=== PATIENT | male | born 1990 | race Two or more races ===

== ENCOUNTER 2021-04-14 23:45 | Emergency (ER) | payer OTHER ==
--- NOTE | 2021-04-15 00:31 | XRAY Report ---
PROCEDURE: Shoulder 3 View RT INDICATIONS: injury 2x lifting wts./c/o pain TECHNIQUE: 3 views of the shoulder were acquired. COMPARISON: None. FINDINGS: Bones: No fractures or dislocations. No suspicious bony lesions. Visualized ribs appear intact. Soft tissues: No suspicious soft tissue calcifications. IMPRESSION: No fracture. No osseous lesion. If there are persistent symptoms or continued clinical concern for pa thology, then repeat plain film radiographs (7-10 days) or advanced imaging (CT, MR, bone scan) shoul d be considered for further evaluation. Reviewed by: Alaina Schrader MD, PhD on 04/15/2021 12:30 AM PST Approved by: Alaina Schrader MD, PhD on 04/15/2021 12:30 AM PST Station ID: [id number]
[2021-04-15] MEDS ORDERED: KETOROLAC 30 MG/ML VIAL IM STA (00:37)
--- NOTE | 2021-04-15 00:41 | ED Physician Documentation ---
History of Present Illness - Stated complaint Stated Complaint: R shoulder PX/injury - Chief complaint Chief Complaint: Trauma Ext - History obtained from History obtained from: Patient - Additonal information Additional information: 31yM, previously healthy, R hand dominant, p/w R shoulder and R proximal arm pain gradual onset over past several days. patient was arm wrestling a week ago and his friend fell forward onto his R shoulder and proximal arm. He had immediate sudden onset pain that worsened over the next few days with multiple workouts at the gym. patient endorses pain that is "not too bad" right now (6/10), worst in the triceps area, worse with exertion and ROM of shoulder, aching, ,constant. denies swelling or discoloration or deformity. Review of Systems Skin: denies: Lesions, Abrasion (s) Musculoskeletal: reports: Extremity pain Neurologic: denies: Focal weakness, Numbness PD PAST MEDICAL HISTORY - Present Medications Home Medications: Ambulatory Orders Medication Instructions Recorded Confirmed Meds For Adhd 04/14/21 - Allergies Allergies/Adverse Reactions: Allergies Allergy/AdvReac Type Severity Reaction Status Date / Time No Known Drug Allergies Allergy Verified 04/14/21 23:58 PD ED PE NORMAL - Vitals Vital signs reviewed: Yes - General General: Alert and oriented X 3, No acute distress, Well developed/nourished - HEENT HEENT: Atraumatic, PERRL, EOMI - Neck Neck: No bony TTP, Other (R trapezius muscle discomfort to palpation) - Derm Derm: Normal color, Warm and dry - Extremities Extremities: Other (R shoulder FROM. R elbow FROM nontender. R tricep and bicep discomfort with palpation. 2+ BL radial pulses. normal strength, sensation, cap refill. no deformity) - Neuro Neuro: Alert and oriented X 3, No motor deficit, No sensory deficit Results - Vitals Vitals: Vital Signs - 24 hr 04/14/21 23:45 Temperature 36.7 C Heart Rate 108 H Respiratory 16 Rate Blood Pressure 137/69 H O2 Saturation 99 Oxygen O2 Source Room air PD MEDICAL DECISION MAKING - ED course ED course: 31yM p/w likely muscle strain. xrays without acute fracture or dislocation. symptomatic care discussed and return precautions given. plan to rest and f/u with [facility]. Departure - Departure Disposition: 01 Home, Self Care Clinical Impression: Shoulder pain, right Condition: Good Instructions: ED Strain Muscle Ext Comments: You were seen in the emergency department for pain in your right arm and shoulder. Please rest the arm for the next week, take ibuprofen 600mg every 6 hours as needed for pain, and apply ice for 20 minutes every hour. return to the emergency department if you have new or worsening symptoms or other concerns. Follow up with [facility].
[2021-04-15 00:55] VITALS: BP 135/77
== END 2021-04-15 00:47 | disposition home or self-care (01) ==
LOC: ED 23:45
DX: M25.511 Pain in right shoulder (principal)
CPT/HCPCS: 96372; 99282; 99283

== ENCOUNTER 2022-09-03 12:51 | Emergency (ER) | payer OTHER ==
[2022-09-03 12:59] VITALS: BP 143/74
--- NOTE | 2022-09-03 13:23 | XRAY Report ---
PROCEDURE: Ankle 3 View LT INDICATIONS: Trauma TECHNIQUE: 3 views of the ankle were acquired. COMPARISON: None. FINDINGS: Bones: No fractures or dislocations. Ankle mortise is normally aligned. No suspicious bony lesions . Soft tissues: No tibiotalar joint effusion. Achilles tendon appears normal. IMPRESSION: No acute fracture. No osseous lesion. If symptoms and/or clinical suspicion for pathology continue, f urther assessment with repeat plain films, or advanced imaging (e.g., CT, MRI, or bone scan) is recom mended for further assessment. Reviewed by: Afshin Castellanos MD on 09/03/2022 1:22 PM PDT Approved by: Afshin Castellanos MD on 09/03/2022 1:22 PM PDT Station ID: [id number]
[2022-09-03] MEDS ORDERED: IBUPROFEN 800 MG TABLET PO STA (13:28)
--- NOTE | 2022-09-03 13:30 | ED Physician Documentation ---
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 He is not able to walk or bear weight on it. No other injuries. He already has crutches that fit him.) PD PAST MEDICAL HISTORY - Present Medications Home Medications: Ambulatory Orders Medication Instructions Recorded Confirmed Meds For Adhd 04/14/21 HYDROcod/ACETAM 5/325 [[place] 5/325] 1 - 2 tab PO Q6H PRN #10 tablet 09/03/22 Ibuprofen [Motrin] 800 mg PO Q8H PRN #30 tablet 09/03/22 - Allergies Allergies/Adverse Reactions: Allergies Allergy/AdvReac Type Severity Reaction Status Date / Time No Known Drug Allergies Allergy Verified 09/03/22 12:58 PD ED PE NORMAL - Vitals Vital signs reviewed: Yes - General General: Alert and oriented X 3, No acute distress - Extremities Extremities: Other (No proximal fibular tenderness on the left. The left ankle is tender and swollen to both malleoli without deformity. No foot tenderness. Normal pedal pulses and sensation.) - Neuro Neuro: Alert and oriented X 3, Normal speech Results - Vitals Vitals: Vital Signs - 24 hr 09/03/22 12:56 Temperature 36.6 C Heart Rate 100 Respiratory 16 Rate Blood Pressure 143/74 H O2 Saturation 98 Oxygen O2 Source Room air - Rads (name of study) Three-view x-ray of the left ankle is unremarkable. Relevant Findings:: Final report received, EMP independent interpretation of test PD Medical Decision Making - ED course ED course: 32-year-old gentleman with an ankle sprain. Placed in an [employer]. He already has crutches. Needs something for pain and a work note. Departure - Departure Disposition: 01 Home, Self Care Clinical Impression: Left ankle sprain Qualifiers: Encounter type: initial encounter Involved ligament of ankle: anterior talofibular ligament Qualified Code(s): S93.492A - Sprain of other ligament of left ankle, initial encounter Condition: Good Record reviewed to determine appropriate education?: Yes Instructions: ED Sprain Ankle Prescriptions: Ibuprofen [Motrin] 800 mg PO Q8H PRN #30 tablet PRN Reason: PAIN &/OR FEVER HYDROcod/ACETAM 5/325 [[place] 5/325] 1 - 2 tab PO Q6H PRN #10 tablet PRN Reason: Pain Comments: I sent your prescriptions electronically to [facility] in [place]. Return for new or worsening symptoms. Elevate is much as possible and ice as well. You can walk and bear weight on it when it is not too painful to do so. 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 I am prescribing a short course of narcotic pain medication for you. These are potentially dangerous and addictive medications that should be used carefully. These medications may constipate you. Take an [id number] stool softener (docusate) twice daily with plenty of water while taking these medications. If you go 24 hours without a bowel movement, take [id number] miralax, per package instructions. Do not drink or drive while taking these medications. If you received narcotic or sedating medications while in the emergency department, do not drive for 24 hours. Store this medication in a safe, secure place and out of reach of children. It is a violation of federal law to give or sell this medication to another person or to use in a manner other than prescribed. The ED will not refill narcotic prescriptions, including prescriptions lost or stolen. To dispose of unwanted medications: 1. [facility] at [address] [facility] in [place] has a medication drop box. They accept prescription medications (in pill form) Sunday through Sunday 9:00 a.m. to 5:00 p.m. 2. [facility] accepts prescription medications (in pill form only) for disposal year round. Call for more information. 3. Contact the [facility] for the next [facility] sponsored prescription drug collection event. , [phone], or [phone]; Note that many narcotic pain relievers also contain Tylenol/acetaminophen. Please ensure that your total dose of acetaminophen from all sources does not exceed 3 g (3000 mg) per day. Forms: Activity restrictions
[2022-09-03] MEDS: HYDROcod/ACETAM 5/325 MG TABLET PO STA ×2 (13:32→13:41)
== END 2022-09-03 14:02 | disposition home or self-care (01) ==
LOC: ED 12:51
DX: S93.492A Sprain of other ligament of left ankle, initial encounter (principal); W19.XXXA Unspecified fall, initial encounter
CPT/HCPCS: 73610; 99283; 99284; A9270